=== PATIENT | female | born 1935 | race Caucasian/White ===

== ENCOUNTER → 2018-05-11 | Outpatient (CLI) | payer OTHER | END | disposition home or self-care (01) | LOC: HKI 13:34 | DX: M25.569 Pain in unspecified knee (principal); M17.10 Unilateral primary osteoarthritis, unspecified knee | CPT/HCPCS: 73564; 77073 ==

== ENCOUNTER 2018-05-12 06:36 | Inpatient (IN) | payer OTHER ==
[2018-05-12] MEDS: TOTAL KNEE REPLACEMENT PAIN COCKTAIL IRR
[2018-05-12] MEDS: LACTATED RINGER'S 1,000 ML IV* (09:00)
[2018-05-12] MEDS ORDERED: ACETAMINOPHEN 500 MG TAB PO (09:00)
[2018-05-12] MEDS: TRANEXAMIC ACID 1GM/100ML(PMX) 100 ML PRE-OP X1 IVPB (09:00)
[2018-05-12] MEDS: CEFAZOLIN 2 GM/50 ML (PMX) 50 ML IVPB ×2 (09:00→17:22)
[2018-05-12] MEDS: TRANEXAMIC ACID 1GM/100ML(PMX) 100 ML INTRA-OP X1 IVPB (09:00)
[2018-05-12] MEDS: ONDANSETRON 4 MG INJ IV (11:50)
[2018-05-12] MEDS: LANSOPRAZOLE 30 MG CAP PO (11:50)
[2018-05-12] MEDS: CELECOXIB 200 MG CAP PO (11:51)
[2018-05-12] MEDS: GABAPENTIN 300 MG CAP PO ×2 (11:51→20:35)
[2018-05-12] MEDS: DEXAMETHASONE 4 MG/ML 1 ML INJ IV (11:52)
[2018-05-12] MEDS: ACETAMINOPHEN 1000MG/100ML IV 100 ML IVPB ×2 (12:00→17:23)
[2018-05-12] MEDS ORDERED: FENTAnyl 50 MCG/ML VIAL IV ×2 (12:30)
[2018-05-12] MEDS ORDERED: HYDROmorphONE 1 MG/5 ML IV SYRINGE IV (12:30)
[2018-05-12] MEDS ORDERED: DIPHENHYDRAMINE 50 MG INJ IV ×2 (12:30→16:30)
[2018-05-12] MEDS ORDERED: ONDANSETRON 4 MG INJ IV (12:30)
[2018-05-12] MEDS ORDERED: ALBUTEROL 0.083% (NEB) 2.5 MG/3 ML AMP HHN (12:30)
[2018-05-12] MEDS ORDERED: METOCLOPRAMIDE 10 MG INJ IV (12:30)
[2018-05-12] MEDS ORDERED: MEPERIDINE 25 MG INJ IV (12:30)
[2018-05-12] MEDS ORDERED: MIDAZOLAM 1 MG/ML 2 ML INJ (12:31)
[2018-05-12] MEDS: BACITRACIN 50000 UNITS INJ (13:26)
[2018-05-12] MEDS: POLYMYXIN/BACITRACIN 1L IRRIG (13:26)
[2018-05-12] MEDS: HYDROmorphONE 1 MG/5 ML IV SYRINGE IV ×2 (16:26→17:07)
[2018-05-12] MEDS ORDERED: NA PHOSPHATE/BIPHOS 133 ML ENEMA PR (16:30)
[2018-05-12] MEDS ORDERED: NALOXONE (0.4 MG/ML) INJ IV (16:30)
[2018-05-12] MEDS ORDERED: HYDROmorphONE 1 MG/ML SYG IV (16:30)
[2018-05-12] MEDS ORDERED: NACL 0.9% 3 ML SYG IV (16:30)
[2018-05-12] MEDS ORDERED: MAGNESIUM HYDROXIDE 30ML CUP PO (16:30)
[2018-05-12] MEDS ORDERED: oxyCODONE 5 MG TAB PO (16:30)
[2018-05-12] MEDS: DOCUSATE SODIUM 100 MG CAP PO (17:25)
[2018-05-12] MEDS: LACTATED RINGER'S 1,000 ML IV (18:48)
[2018-05-12] MEDS: oxyCODONE 5 MG TAB PO (20:32)
[2018-05-12] MEDS ORDERED: GABAPENTIN 300 MG CAP PO (21:00)
[2018-05-13] MEDS: CEFAZOLIN 2 GM/50 ML (PMX) 50 ML IVPB ×2 (02:00→10:49)
[2018-05-13] MEDS: ACETAMINOPHEN 1000MG/100ML IV 100 ML IVPB ×2 (02:04→10:49)
[2018-05-13] MEDS: oxyCODONE 5 MG TAB PO ×2 (03:10→09:20)
[2018-05-13 05:14] LABS: ADD MAN DIFF? NO
[2018-05-13 05:16] LABS: WHITE BLOOD COUNT 16.7 10^3/ul (4.8-10.8)
[2018-05-13 05:16] LABS: BASOPHILS % 0.1 % (0.0-2.0); HEMATOCRIT 34.1 % (37.0-47.0); HEMOGLOBIN 11.4 g/dl (12.0-16.0); LYMPHOCYTES % 6.2 % (15.0-51.0); MEAN CORPUSCULAR HEMOGLOBIN 30.6 pg (29.0-33.0); MEAN CORPUSCULAR HGB CONC 33.4 g/dl (32.0-37.0); MEAN CORPUSCULAR VOLUME 91.4 fl (82.0-101.0); MEAN PLATELET VOLUME 9.7 fl (7.4-10.4); MONOCYTES % 5.9 % (0.0-11.0); NEUTROPHIL # 14.6 10^3/ul (1.6-7.5); NEUTROPHILS % 87.2 % (39.0-77.0); PLATELET COUNT 308 10^3/UL (140-415); RED BLOOD COUNT 3.73 10^6/ul (4.20-5.40); RED CELL DISTRIBUTION WIDTH 13.2 % (11.5-14.5)
[2018-05-13 05:36] LABS: ANION GAP 15 (5-13); BLOOD UREA NITROGEN 19 mg/dl (7-20); CALCIUM 9.5 mg/dl (8.4-10.2); CARBON DIOXIDE 26 mmol/L (21-31); CHLORIDE 98 mmol/L (97-110); CREATININE 0.68 mg/dl (0.44-1.00); GLUCOSE 121 mg/dl (70-220); POTASSIUM 4.2 mmol/L (3.5-5.1); SODIUM 139 mmol/L (135-144)
[2018-05-13] MEDS: BETHANECHOL 25 MG TAB PO ×2 (06:34→13:40)
[2018-05-13] MEDS: LACTATED RINGER'S 1,000 ML IV ×2 (07:00→19:30)
[2018-05-13] MEDS: HYDROCHLOROTHIAZIDE 25 MG TAB PO (09:00)
[2018-05-13] MEDS: AMLODIPINE 5 MG TAB PO (09:00)
[2018-05-13] MEDS: LOSARTAN 50 MG TAB PO (09:00)
[2018-05-13] MEDS: DEXAMETHASONE 10 MG/ML 1 ML INJ IV (09:21)
[2018-05-13] MEDS: DOCUSATE SODIUM 100 MG CAP PO ×2 (09:22→21:52)
[2018-05-13] MEDS: ASPIRIN (EC) 81 MG TAB PO ×2 (09:24→21:51)
[2018-05-13 09:49] LABS: ADD UMIC NO; UR ASCORBIC ACID NEGATIVE (NEGATIVE); UR BILIRUBIN (Dip) NEGATIVE (NEGATIVE); UR BLOOD (Dip) NEGATIVE (NEGATIVE); UR CLARITY CLEAR (CLEAR); UR COLOR YELLOW (YELLOW); UR GLUCOSE (Dip) NEGATIVE (NEGATIVE); UR KETONES (Dip) NEGATIVE (NEGATIVE); UR LEUKOCYTE ESTERASE (Dip) NEGATIVE Leu/ul (NEGATIVE); UR NITRITE (Dip) NEGATIVE (NEGATIVE); UR SPECIFIC GRAVITY (Dip) 1.032 (1.003-1.030); UR TOTAL PROTEIN (Dip) NEGATIVE (NEGATIVE); UR UROBILINOGEN (Dip) NEGATIVE (NEGATIVE)
[2018-05-13] MEDS: SENNA/DOCUSATE NA (8.6MG/50MG) TAB PO (13:40)
[2018-05-13] MEDS ORDERED: ONDANSETRON 4 MG INJ IV (16:30)
[2018-05-13] MEDS: ACETAMINOPHEN 500 MG TAB PO (21:51)
[2018-05-13] MEDS: GABAPENTIN 300 MG CAP PO (21:51)
[2018-05-14] MEDS: oxyCODONE 5 MG TAB PO ×3 (02:07→16:44)
[2018-05-14 05:11] LABS: ADD MAN DIFF? NO
[2018-05-14 05:17] LABS: WHITE BLOOD COUNT 13.8 10^3/ul (4.8-10.8)
[2018-05-14 05:17] LABS: BASOPHILS % 0.1 % (0.0-2.0); HEMATOCRIT 30.7 % (37.0-47.0); HEMOGLOBIN 10.3 g/dl (12.0-16.0); LYMPHOCYTES # 1.4 10^3/ul (0.8-2.9); LYMPHOCYTES % 10.3 % (15.0-51.0); MEAN CORPUSCULAR HEMOGLOBIN 30.5 pg (29.0-33.0); MEAN CORPUSCULAR HGB CONC 33.6 g/dl (32.0-37.0); MEAN CORPUSCULAR VOLUME 90.8 fl (82.0-101.0); MEAN PLATELET VOLUME 9.6 fl (7.4-10.4); MONOCYTE # 1.4 10^3/ul (0.3-0.9); MONOCYTES % 10.3 % (0.0-11.0); NEUTROPHIL # 10.9 10^3/ul (1.6-7.5); PLATELET COUNT 256 10^3/UL (140-415); RED BLOOD COUNT 3.38 10^6/ul (4.20-5.40); RED CELL DISTRIBUTION WIDTH 13.4 % (11.5-14.5)
[2018-05-14 05:31] LABS: ANION GAP 7 (5-13); BLOOD UREA NITROGEN 21 mg/dl (7-20); CALCIUM 9.4 mg/dl (8.4-10.2); CARBON DIOXIDE 28 mmol/L (21-31); CHLORIDE 105 mmol/L (97-110); GLUCOSE 112 mg/dl (70-220); POTASSIUM 4.2 mmol/L (3.5-5.1); SODIUM 140 mmol/L (135-144)
[2018-05-14] MEDS: PANTOPRAZOLE (EC) 40 MG TAB PO (06:36)
[2018-05-14] MEDS: ACETAMINOPHEN 500 MG TAB PO ×2 (06:37→14:54)
[2018-05-14] MEDS: LACTATED RINGER'S 1,000 ML IV (08:00)
[2018-05-14] MEDS: AMLODIPINE 5 MG TAB PO (09:00)
[2018-05-14] MEDS: LOSARTAN 50 MG TAB PO (09:00)
[2018-05-14] MEDS: HYDROCHLOROTHIAZIDE 25 MG TAB PO (09:00)
[2018-05-14] MEDS: ASPIRIN (EC) 81 MG TAB PO (09:03)
[2018-05-14] MEDS: SENNA/DOCUSATE NA (8.6MG/50MG) TAB PO (09:04)
[2018-05-14] MEDS: DOCUSATE SODIUM 100 MG CAP PO (09:04)
[2018-05-14] MEDS: BISACODYL 10 MG SUPP PR (14:54)
== END 2018-05-14 18:58 | DRG 470 ==
LOC: REC 06:36 → MS1 18:25
PROC: 0SRC0J9 Replacement of Right Knee Joint with Synthetic Substitute, Cemented, Open Approach (ICD-10-PCS; principal; 2018-05-12 12:30)
PROC: XR2G021 Monitoring of Right Knee Joint using Intraoperative Knee Replacement Sensor, Open Approach, New Technology Group 1 (ICD-10-PCS; 2018-05-12 12:30)
DX: M17.11 Unilateral primary osteoarthritis, right knee (principal); I10 Essential (primary) hypertension; K21.9 Gastro-esophageal reflux disease without esophagitis; M81.0 Age-related osteoporosis without current pathological fracture; Z79.82 Long term (current) use of aspirin
CPT/HCPCS: 73560; 80048; 81003; 85025; 87081; 87086; 88304; 88311; 97116; 97162; 97165; 97530; 97535

== ENCOUNTER → 2018-05-28 | Outpatient (CLI) | payer OTHER | END | disposition home or self-care (01) | LOC: HKI 11:21 | DX: Z47.1 Aftercare following joint replacement surgery (principal); Z96.651 Presence of right artificial knee joint ==

== ENCOUNTER 2018-06-24 17:06 | Inpatient (IN) | payer OTHER ==
[2018-06-24] MEDS: LACTATED RINGER'S 1,000 ML IV (18:48)
[2018-06-24] MEDS: HYDROmorphONE 2 MG/ML SYG IV (18:48)
[2018-06-24 18:50] LABS: ADD UMIC NO; UR ASCORBIC ACID NEGATIVE (NEGATIVE); UR BILIRUBIN (Dip) NEGATIVE (NEGATIVE); UR BLOOD (Dip) NEGATIVE (NEGATIVE); UR CLARITY CLEAR (CLEAR); UR COLOR STRAW (YELLOW); UR GLUCOSE (Dip) NEGATIVE (NEGATIVE); UR KETONES (Dip) NEGATIVE (NEGATIVE); UR LEUKOCYTE ESTERASE (Dip) NEGATIVE Leu/ul (NEGATIVE); UR NITRITE (Dip) NEGATIVE (NEGATIVE); UR SPECIFIC GRAVITY (Dip) 1.009 (1.003-1.030); UR TOTAL PROTEIN (Dip) NEGATIVE (NEGATIVE); UR UROBILINOGEN (Dip) NEGATIVE (NEGATIVE)
[2018-06-24] MEDS ORDERED: ONDANSETRON 4 MG INJ (18:58)
[2018-06-24] MEDS ORDERED: IBUPROFEN 200 MG TAB (18:58)
[2018-06-24 19:07] LABS: ADD MAN DIFF? NO
[2018-06-24 19:08] LABS: BASOPHIL # 0.1 10^3/ul (0.0-0.1); BASOPHILS % 0.6 % (0.0-2.0); EOSINOPHILS # 0.1 10^3/ul (0.0-0.5); EOSINOPHILS % 0.6 % (0.0-7.0); HEMATOCRIT 42.5 % (37.0-47.0); HEMOGLOBIN 14.1 g/dl (12.0-16.0); LYMPHOCYTES # 1.8 10^3/ul (0.8-2.9); LYMPHOCYTES % 14.4 % (15.0-51.0); MEAN CORPUSCULAR HGB CONC 33.2 g/dl (32.0-37.0); MEAN CORPUSCULAR VOLUME 87.4 fl (82.0-101.0); MONOCYTE # 0.9 10^3/ul (0.3-0.9); MONOCYTES % 7.1 % (0.0-11.0); NEUTROPHIL # 9.6 10^3/ul (1.6-7.5); PLATELET COUNT 393 10^3/UL (140-415); RED BLOOD COUNT 4.86 10^6/ul (4.20-5.40); RED CELL DISTRIBUTION WIDTH 13.2 % (11.5-14.5)
[2018-06-24 19:08] LABS: WHITE BLOOD COUNT 12.5 10^3/ul (4.8-10.8)
[2018-06-24] MEDS: ONDANSETRON 4 MG INJ IV (19:08)
[2018-06-24 19:27] LABS: ALANINE AMINOTRANSFERASE 24 IU/L (13-69); ALBUMIN 4.5 g/dl (3.3-4.9); ALBUMIN/GLOBULIN RATIO 1.36; ALKALINE PHOSPHATASE 99 IU/L (42-121); ANION GAP 13 (5-13); ASPARTATE AMINO TRANSFERASE 22 IU/L (15-46); BILIRUBIN,INDIRECT 0.2 mg/dl (0-1.1); BILIRUBIN,TOTAL 0.2 mg/dl (0.2-1.3); BLOOD UREA NITROGEN 5 mg/dl (7-20); CALCIUM 10.2 mg/dl (8.4-10.2); CARBON DIOXIDE 26 mmol/L (21-31); CHLORIDE 96 mmol/L (97-110); CREATININE 0.44 mg/dl (0.44-1.00); GLUCOSE 129 mg/dl (70-220); LIPASE 54 U/L (23-300); POTASSIUM 4.5 mmol/L (3.5-5.1); SODIUM 135 mmol/L (135-144); TOTAL PROTEIN 7.8 g/dl (6.1-8.1)
[2018-06-24 19:29] LABS: LACTIC ACID 2.4 mmol/L (0.5-2.0)
[2018-06-24] MEDS: PIPER-TAZO 3.375 GM IV (PMX) 100 ML IVPB (19:43)
[2018-06-24] MEDS: SODIUM CHLORIDE 0.9% 1L BAG IV* (19:50)
[2018-06-24] MEDS ORDERED: ACETAMINOPHEN 325 MG TAB PO (20:30)
[2018-06-24] MEDS ORDERED: ONDANSETRON 4 MG INJ IV ×2 (20:30→22:00)
[2018-06-24] MEDS: HYDROmorphONE 0.5 MG/0.5 ML SYG IV (20:35)
[2018-06-24] MEDS ORDERED: hydrALAzine 20 MG INJ IV (22:00)
[2018-06-24] MEDS ORDERED: NACL 0.9% 3 ML SYG IV (22:00)
[2018-06-24] MEDS ORDERED: ENALAPRILAT 2.5 MG INJ IV (22:00)
[2018-06-24] MEDS ORDERED: morphine 2 MG INJ IV (22:00)
[2018-06-24] MEDS ORDERED: BISACODYL (EC) 5 MG TAB PO (22:00)
[2018-06-24] MEDS ORDERED: DOCUSATE SODIUM 100 MG CAP PO (22:00)
[2018-06-24 22:20] LABS: LACTIC ACID 1.7 mmol/L (0.5-2.0)
[2018-06-25] MEDS: HYDROmorphONE 0.5 MG/0.5 ML SYG IV (00:12)
[2018-06-25] MEDS: SOD CHLORIDE 0.9% 1,000 ML IV ×4 (00:15→23:25)
[2018-06-25 00:45] LABS: LACTIC ACID 1.5 mmol/L (0.5-2.0)
[2018-06-25] MEDS: HYDROmorphONE 1 MG/ML SYG IV ×2 (03:31→13:57)
[2018-06-25] MEDS ORDERED: KETOROLAC 15 MG INJ IV (04:30)
[2018-06-25] MEDS: PANTOPRAZOLE 40 MG INJ IV (05:36)
[2018-06-25 07:22] LABS: ADD MAN DIFF? NO
[2018-06-25 07:33] LABS: WHITE BLOOD COUNT 10.9 10^3/ul (4.8-10.8)
[2018-06-25 07:33] LABS: BASOPHILS % 0.4 % (0.0-2.0); EOSINOPHILS # 0.1 10^3/ul (0.0-0.5); HEMATOCRIT 36.1 % (37.0-47.0); HEMOGLOBIN 11.6 g/dl (12.0-16.0); LYMPHOCYTES # 1.2 10^3/ul (0.8-2.9); MEAN CORPUSCULAR HEMOGLOBIN 28.9 pg (29.0-33.0); MEAN CORPUSCULAR HGB CONC 32.1 g/dl (32.0-37.0); MEAN PLATELET VOLUME 9.5 fl (7.4-10.4); MONOCYTE # 0.8 10^3/ul (0.3-0.9); MONOCYTES % 7.6 % (0.0-11.0); NEUTROPHIL # 8.7 10^3/ul (1.6-7.5); NEUTROPHILS % 79.5 % (39.0-77.0); PLATELET COUNT 344 10^3/UL (140-415); RED BLOOD COUNT 4.01 10^6/ul (4.20-5.40); RED CELL DISTRIBUTION WIDTH 13.5 % (11.5-14.5)
[2018-06-25 07:45] LABS: LACTIC ACID 1.5 mmol/L (0.5-2.0)
[2018-06-25 07:52] LABS: ALANINE AMINOTRANSFERASE 18 IU/L (13-69); ALBUMIN 3.5 g/dl (3.3-4.9); ALKALINE PHOSPHATASE 76 IU/L (42-121); ANION GAP 10 (5-13); ASPARTATE AMINO TRANSFERASE 19 IU/L (15-46); BILIRUBIN,INDIRECT 0.2 mg/dl (0-1.1); BILIRUBIN,TOTAL 0.2 mg/dl (0.2-1.3); BLOOD UREA NITROGEN 5 mg/dl (7-20); CALCIUM 9.1 mg/dl (8.4-10.2); CARBON DIOXIDE 25 mmol/L (21-31); CHLORIDE 102 mmol/L (97-110); CHOL/HDL RATIO 2.4 RATIO; CHOLESTEROL 119 mg/dl (100-200); CREATININE 0.46 mg/dl (0.44-1.00); GLUCOSE 101 mg/dl (70-220); HDL CHOLESTEROL 49 mg/dl (33-92); LDL CHOLESTEROL,CALCULATED 46 mg/dl; POTASSIUM 4.1 mmol/L (3.5-5.1); SODIUM 137 mmol/L (135-144); TOTAL PROTEIN 6.4 g/dl (6.1-8.1); TRIGLYCERIDES 121 mg/dl (0-149)
[2018-06-25 08:15] LABS: HEMOGLOBIN A1C 5.6 % (0-5.9)
[2018-06-25 08:18] LABS: THYROID STIMULATING HORMONE 0.762 MIU/L (0.465-4.680)
[2018-06-25] MEDS: DIATR MEGLU/DIATRIZOATE SODIUM 120 ML BTL (15:37)
[2018-06-26] MEDS: PANTOPRAZOLE 40 MG INJ IV (06:08)
[2018-06-26 06:30] LABS: ADD MAN DIFF? NO
[2018-06-26 06:34] LABS: WHITE BLOOD COUNT 7.7 10^3/ul (4.8-10.8)
[2018-06-26 06:34] LABS: BASOPHILS % 0.5 % (0.0-2.0); EOSINOPHILS # 0.2 10^3/ul (0.0-0.5); EOSINOPHILS % 2.5 % (0.0-7.0); HEMOGLOBIN 12.1 g/dl (12.0-16.0); LYMPHOCYTES # 1.6 10^3/ul (0.8-2.9); LYMPHOCYTES % 20.4 % (15.0-51.0); MEAN CORPUSCULAR HEMOGLOBIN 28.6 pg (29.0-33.0); MEAN CORPUSCULAR HGB CONC 31.8 g/dl (32.0-37.0); MEAN CORPUSCULAR VOLUME 89.8 fl (82.0-101.0); MEAN PLATELET VOLUME 9.2 fl (7.4-10.4); MONOCYTE # 0.7 10^3/ul (0.3-0.9); MONOCYTES % 9.2 % (0.0-11.0); NEUTROPHIL # 5.2 10^3/ul (1.6-7.5); PLATELET COUNT 350 10^3/UL (140-415); RED BLOOD COUNT 4.23 10^6/ul (4.20-5.40); RED CELL DISTRIBUTION WIDTH 13.9 % (11.5-14.5)
[2018-06-26 06:59] LABS: PHOSPHORUS 4.3 mg/dl (2.5-4.9)
[2018-06-26 07:07] LABS: ANION GAP 8 (5-13); BLOOD UREA NITROGEN 8 mg/dl (7-20); CALCIUM 9.7 mg/dl (8.4-10.2); CARBON DIOXIDE 27 mmol/L (21-31); CHLORIDE 108 mmol/L (97-110); CREATININE 0.48 mg/dl (0.44-1.00); GLUCOSE 88 mg/dl (70-220); POTASSIUM 3.9 mmol/L (3.5-5.1); SODIUM 143 mmol/L (135-144)
[2018-06-26] MEDS: SOD CHLORIDE 0.9% 1,000 ML IV (11:32)
[2018-06-26] MEDS: ACETAMINOPHEN 325 MG TAB PO (11:51)
[2018-06-26] MEDS: SACCHAROMYCES BOULARDII 250 MG CAP PO ×2 (17:29→20:35)
[2018-06-26] MEDS: HYDROCHLOROTHIAZIDE 25 MG TAB PO (17:29)
[2018-06-26] MEDS: AMLODIPINE 5 MG TAB PO (17:29)
[2018-06-26] MEDS: LOSARTAN 50 MG TAB PO (17:30)
[2018-06-26] MEDS: ASPIRIN (EC) 81 MG TAB PO (20:35)
[2018-06-27] MEDS: SOD CHLORIDE 0.9% 1,000 ML IV ×3 (00:07→20:28)
[2018-06-27] MEDS: PANTOPRAZOLE 40 MG INJ IV (05:42)
[2018-06-27] MEDS: HYDROCHLOROTHIAZIDE 25 MG TAB PO (05:44)
[2018-06-27 07:15] LABS: ADD MAN DIFF? NO
[2018-06-27 07:26] LABS: WHITE BLOOD COUNT 7.1 10^3/ul (4.8-10.8)
[2018-06-27 07:26] LABS: BASOPHIL # 0.1 10^3/ul (0.0-0.1); BASOPHILS % 0.8 % (0.0-2.0); EOSINOPHILS # 0.2 10^3/ul (0.0-0.5); EOSINOPHILS % 2.5 % (0.0-7.0); HEMATOCRIT 38.1 % (37.0-47.0); HEMOGLOBIN 12.5 g/dl (12.0-16.0); LYMPHOCYTES # 1.6 10^3/ul (0.8-2.9); LYMPHOCYTES % 22.5 % (15.0-51.0); MEAN CORPUSCULAR HEMOGLOBIN 28.7 pg (29.0-33.0); MEAN CORPUSCULAR HGB CONC 32.8 g/dl (32.0-37.0); MEAN CORPUSCULAR VOLUME 87.4 fl (82.0-101.0); MEAN PLATELET VOLUME 9.2 fl (7.4-10.4); MONOCYTE # 0.6 10^3/ul (0.3-0.9); MONOCYTES % 8.5 % (0.0-11.0); NEUTROPHIL # 4.7 10^3/ul (1.6-7.5); NEUTROPHILS % 65.4 % (39.0-77.0); PLATELET COUNT 354 10^3/UL (140-415); RED BLOOD COUNT 4.36 10^6/ul (4.20-5.40); RED CELL DISTRIBUTION WIDTH 13.6 % (11.5-14.5)
[2018-06-27 07:53] LABS: MAGNESIUM 1.8 mg/dl (1.7-2.5)
[2018-06-27 07:53] LABS: PHOSPHORUS 4.6 mg/dl (2.5-4.9)
[2018-06-27 07:55] LABS: ANION GAP 10 (5-13); BLOOD UREA NITROGEN 6 mg/dl (7-20); CALCIUM 9.8 mg/dl (8.4-10.2); CARBON DIOXIDE 25 mmol/L (21-31); CHLORIDE 105 mmol/L (97-110); CREATININE 0.47 mg/dl (0.44-1.00); GLUCOSE 93 mg/dl (70-220); POTASSIUM 3.3 mmol/L (3.5-5.1); SODIUM 140 mmol/L (135-144)
[2018-06-27] MEDS ORDERED: NON-FORMULARY/PATIENT OWN MED (Omeprazole* 20 MG) PO (09:00)
[2018-06-27] MEDS: ASPIRIN (EC) 81 MG TAB PO ×2 (09:02→20:29)
[2018-06-27] MEDS: SACCHAROMYCES BOULARDII 250 MG CAP PO ×2 (09:02→20:29)
[2018-06-27] MEDS: AMLODIPINE 5 MG TAB PO (09:03)
[2018-06-27] MEDS: LOSARTAN 50 MG TAB PO (09:03)
[2018-06-27] MEDS: POTASSIUM CHLORIDE (SR) 20 MEQ TAB PO (15:40)
[2018-06-28] MEDS: PANTOPRAZOLE 40 MG INJ IV (05:58)
[2018-06-28] MEDS: SOD CHLORIDE 0.9% 1,000 ML IV (05:58)
[2018-06-28] MEDS: HYDROCHLOROTHIAZIDE 25 MG TAB PO (06:03)
[2018-06-28 06:51] LABS: ADD MAN DIFF? NO
[2018-06-28 06:55] LABS: WHITE BLOOD COUNT 6.4 10^3/ul (4.8-10.8)
[2018-06-28 06:55] LABS: BASOPHILS % 0.6 % (0.0-2.0); EOSINOPHILS # 0.2 10^3/ul (0.0-0.5); EOSINOPHILS % 2.3 % (0.0-7.0); HEMATOCRIT 37.2 % (37.0-47.0); HEMOGLOBIN 12.2 g/dl (12.0-16.0); LYMPHOCYTES % 30.5 % (15.0-51.0); MEAN CORPUSCULAR HEMOGLOBIN 28.6 pg (29.0-33.0); MEAN CORPUSCULAR HGB CONC 32.8 g/dl (32.0-37.0); MEAN CORPUSCULAR VOLUME 87.1 fl (82.0-101.0); MEAN PLATELET VOLUME 9.1 fl (7.4-10.4); MONOCYTE # 0.6 10^3/ul (0.3-0.9); MONOCYTES % 8.8 % (0.0-11.0); NEUTROPHIL # 3.7 10^3/ul (1.6-7.5); NEUTROPHILS % 57.5 % (39.0-77.0); PLATELET COUNT 355 10^3/UL (140-415); RED BLOOD COUNT 4.27 10^6/ul (4.20-5.40); RED CELL DISTRIBUTION WIDTH 13.6 % (11.5-14.5)
[2018-06-28 07:41] LABS: PHOSPHORUS 4.3 mg/dl (2.5-4.9)
[2018-06-28 07:41] LABS: MAGNESIUM 1.8 mg/dl (1.7-2.5)
[2018-06-28 07:44] LABS: ALANINE AMINOTRANSFERASE 20 IU/L (13-69); ALBUMIN 3.6 g/dl (3.3-4.9); ALBUMIN/GLOBULIN RATIO 1.16; ALKALINE PHOSPHATASE 75 IU/L (42-121); ANION GAP 7 (5-13); ASPARTATE AMINO TRANSFERASE 25 IU/L (15-46); BILIRUBIN,INDIRECT 0.4 mg/dl (0-1.1); BILIRUBIN,TOTAL 0.4 mg/dl (0.2-1.3); BLOOD UREA NITROGEN 6 mg/dl (7-20); CALCIUM 9.6 mg/dl (8.4-10.2); CARBON DIOXIDE 26 mmol/L (21-31); CHLORIDE 109 mmol/L (97-110); CREATININE 0.49 mg/dl (0.44-1.00); GLUCOSE 88 mg/dl (70-220); POTASSIUM 3.6 mmol/L (3.5-5.1); SODIUM 142 mmol/L (135-144); TOTAL PROTEIN 6.7 g/dl (6.1-8.1)
[2018-06-28] MEDS: AMLODIPINE 5 MG TAB PO (08:19)
[2018-06-28] MEDS: ASPIRIN (EC) 81 MG TAB PO (08:19)
[2018-06-28] MEDS: SACCHAROMYCES BOULARDII 250 MG CAP PO (08:19)
[2018-06-28] MEDS: LOSARTAN 50 MG TAB PO (08:21)
== END 2018-06-28 12:56 | disposition home or self-care (01) | DRG 389 ==
LOC: E/R 17:06 → 5EC 20:25
DX: K56.600 Partial intestinal obstruction, unspecified as to cause (principal); E87.2 Acidosis; E66.9 Obesity, unspecified; Z68.32 Body mass index [BMI] 32.0-32.9, adult; I10 Essential (primary) hypertension; E78.5 Hyperlipidemia, unspecified; K21.9 Gastro-esophageal reflux disease without esophagitis; M81.0 Age-related osteoporosis without current pathological fracture; Z79.82 Long term (current) use of aspirin
CPT/HCPCS: 36415; 71045; 74176; 74250; 80048; 80053; 80061; 81003; 83036; 83605; 83690; 83735; 84100; 84443; 85025; 87040-91; 93005; 96374; 96375; 97110; 97116; 97162; 97530; 99285-25

== ENCOUNTER 2018-07-03 08:00 | Emergency (ER) | payer OTHER ==
[2018-07-03] MEDS: FAMOTIDINE 20 MG TAB PO (09:09)
[2018-07-03] MEDS: LIDOCAINE/MYLANTA 40 ML BTL PO (09:09)
[2018-07-03] MEDS: BELLADONNA/PHENOBARBITAL TAB PO (09:09)
[2018-07-03 09:20] LABS: ADD MAN DIFF? NO
[2018-07-03 09:23] LABS: BASOPHILS % 0.5 % (0.0-2.0); EOSINOPHILS # 0.1 10^3/ul (0.0-0.5); EOSINOPHILS % 1.3 % (0.0-7.0); HEMATOCRIT 41.3 % (37.0-47.0); HEMOGLOBIN 13.5 g/dl (12.0-16.0); LYMPHOCYTES # 1.8 10^3/ul (0.8-2.9); LYMPHOCYTES % 22.5 % (15.0-51.0); MEAN CORPUSCULAR HEMOGLOBIN 28.3 pg (29.0-33.0); MEAN CORPUSCULAR HGB CONC 32.7 g/dl (32.0-37.0); MEAN CORPUSCULAR VOLUME 86.6 fl (82.0-101.0); MONOCYTE # 0.7 10^3/ul (0.3-0.9); MONOCYTES % 9.3 % (0.0-11.0); NEUTROPHIL # 5.3 10^3/ul (1.6-7.5); NEUTROPHILS % 66.3 % (39.0-77.0); PLATELET COUNT 423 10^3/UL (140-415); RED BLOOD COUNT 4.77 10^6/ul (4.20-5.40); RED CELL DISTRIBUTION WIDTH 13.5 % (11.5-14.5)
[2018-07-03 09:42] LABS: INR 0.92; PROTIME 12.5 Sec (11.9-14.9)
[2018-07-03 09:48] LABS: ADD UMIC NO; ALANINE AMINOTRANSFERASE 17 IU/L (13-69); ALBUMIN 4.5 g/dl (3.3-4.9); ALKALINE PHOSPHATASE 92 IU/L (42-121); ANION GAP 14 (5-13); ASPARTATE AMINO TRANSFERASE 26 IU/L (15-46); BILIRUBIN,INDIRECT 0.2 mg/dl (0-1.1); BILIRUBIN,TOTAL 0.2 mg/dl (0.2-1.3); BLOOD UREA NITROGEN 5 mg/dl (7-20); CALCIUM 10.4 mg/dl (8.4-10.2); CARBON DIOXIDE 26 mmol/L (21-31); CHLORIDE 95 mmol/L (97-110); CREATININE 0.47 mg/dl (0.44-1.00); GLUCOSE 107 mg/dl (70-220); LIPASE 77 U/L (23-300); POTASSIUM 4.8 mmol/L (3.5-5.1); SODIUM 135 mmol/L (135-144); TOTAL PROTEIN 7.7 g/dl (6.1-8.1); UR ASCORBIC ACID NEGATIVE (NEGATIVE); UR BILIRUBIN (Dip) NEGATIVE (NEGATIVE); UR BLOOD (Dip) NEGATIVE (NEGATIVE); UR CLARITY CLEAR (CLEAR); UR COLOR STRAW (YELLOW); UR GLUCOSE (Dip) NEGATIVE (NEGATIVE); UR KETONES (Dip) NEGATIVE (NEGATIVE); UR LEUKOCYTE ESTERASE (Dip) NEGATIVE Leu/ul (NEGATIVE); UR NITRITE (Dip) NEGATIVE (NEGATIVE); UR SPECIFIC GRAVITY (Dip) 1.003 (1.003-1.030); UR TOTAL PROTEIN (Dip) NEGATIVE (NEGATIVE); UR UROBILINOGEN (Dip) NEGATIVE (NEGATIVE)
[2018-07-03 10:00] LABS: TROPONIN-I < 0.012 ng/ml (0.000-0.120)
== END 2018-07-03 11:47 | disposition home or self-care (01) ==
LOC: E/R 08:00
DX: R10.13 Epigastric pain (principal); I10 Essential (primary) hypertension; Z79.82 Long term (current) use of aspirin
CPT/HCPCS: 71045; 74018; 76705; 80053; 81003; 83690; 84484; 85025; 85610; 87086; 93005; 99285-25

== ENCOUNTER 2018-09-17 10:22 | Day surgery (SDC) | payer OTHER ==
[2018-09-17] MEDS ORDERED: PROPOFOL 20 ML (12:56)
== END 2018-09-17 14:27 | disposition home or self-care (01) ==
LOC: GIL 10:22
DX: K44.9 Diaphragmatic hernia without obstruction or gangrene (principal); K21.9 Gastro-esophageal reflux disease without esophagitis; K29.50 Unspecified chronic gastritis without bleeding
CPT/HCPCS: 43239; 88305; 88312